=== PATIENT | male | born 1960 | race Two or more races ===

== ENCOUNTER 2018-01-06 10:50 | Emergency (ER) | payer BC ==
[~2018-01-06] VITALS: Ht 180.3 cm; Wt 83.0 kg
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
--- NOTE | 2018-01-06 11:26 | NUR ---
MAYRA GUILLORY AT BEDSIDE
[2018-01-06] MEDS ORDERED: IV NS 0.9% 1,000 ML BAG IV ONE (11:30)
[2018-01-06] MEDS ORDERED: ACETAMINOPHEN 325 MG TABLET PO ONE (11:30)
[2018-01-06] MEDS ORDERED: ACETAMINOPHEN ES 500 MG TABLET ONE (11:40)
[2018-01-06 11:59] LABS: BASOPHILS % (AUTO) 0.4 % (0.0-2.0); EOSINOPHILS % (AUTO) 0.4 % (0.0-6.0); HEMATOCRIT 45 % (39-51); HEMOGLOBIN 15.2 g/dL (13.5-17.5); LYMPHOCYTES # (AUTO) 1.1 /CMM (0.8-4.8); MEAN CORPUSCULAR HGB CONC 34 g/dl (31.0-36.0); MEAN CORPUSCULAR VOLUME 90 fL (80-96); MONOCYTES # (AUTO) 0.5 /CMM (0.1-1.30); MONOCYTES % (AUTO) 6.4 % (2.0-12.0); NEUTROPHILS # (AUTO) 6.2 /CMM (1.8-8.9); NEUTROPHILS % (AUTO) 78.8 % (43.0-81.0); PLATELET COUNT (AUTO) 254 /CMM (150-450); RED BLOOD CELL COUNT(AUTO) 4.98 MIL/uL (4.5-6.0); WHITE BLOOD COUNT (AUTO) 7.9 K/uL (4.3-11.0)
[2018-01-06 12:11] LABS: CALCIUM, SERUM 9.5 mg/dL (8.5-10.1); CREATININE 1.1 mg/dL (0.6-1.3); POTASSIUM 3.8 mmol/L (3.5-5.1)
--- NOTE | 2018-01-06 12:20 | NUR ---
OUT FOR CT CHEST W CONTRAST
[2018-01-06] MEDS ORDERED: CT SWABBABLE VALVE TRANS SET 1 EA INFUS.SET MC ONE (12:28)
[2018-01-06] MEDS ORDERED: IOHEXOL-300 100 ML VIAL IV ONE (12:28)
[2018-01-06] MEDS ORDERED: IV NS 0.9% 250 ML IV ONE (12:29)
--- NOTE | 2018-01-06 14:24 | NUR ---
IV removed. Catheter intact and site benign. Pressure and 4x4 applied to site. No bleeding noted. Patient discharged to home in stable condition. Written and verbal after care instructions given. Patient verbalizes understanding of instruction.
[2018-01-06 14:26] VITALS: BP 122/78
== END 2018-01-06 14:27 | disposition home or self-care (01) ==
LOC: ER 10:54
DX: S22.20XA Unspecified fracture of sternum, initial encounter for closed fracture (principal); S60.052A Contusion of left little finger without damage to nail, initial encounter; S60.042A Contusion of left ring finger without damage to nail, initial encounter; S60.032A Contusion of left middle finger without damage to nail, initial encounter; S60.031A Contusion of right middle finger without damage to nail, initial encounter; I51.7 Cardiomegaly; V43.02XA Car driver injured in collision with other type car in nontraffic accident, initial encounter; Y93.89 Activity, other specified; Y92.410 Unspecified street and highway as the place of occurrence of the external cause; Y99.8 Other external cause status
CPT/HCPCS: 36415; 71260; 73130 ×2; 80048; 85025; 85730; 93005; 99284; A4606; J7030; J7050; Q9967; Z7610